=== PATIENT | female | born 1985 | race Caucasian/White ===

== ENCOUNTER 2017-09-16 12:03 | Inpatient (IN) | payer BC ==
[~2017-09-16] VITALS: Ht 175.3 cm; Wt 74.1 kg
[~2017-09-16 12:03] MED LIST: IBUP-1223 PO; OXYC-302 PO
[2017-09-22] MEDS ORDERED: LACTATED RINGERS 1,000 ML IV SCH (16:13)
[2017-09-22] MEDS ORDERED: OXYTOCIN 30U/ 0.9% NaCL 500ML 500 ML IV ONE (16:13)
[2017-09-22] MEDS ORDERED: D5%-LACTATED RINGERS 1,000 ML IV SCH (16:13)
[2017-09-22 16:30] VITALS: BP 112/66
[2017-09-22] MEDS ORDERED: FENTANYL PF 100 MCG/2ML IV PRN (16:30)
[2017-09-22] MEDS ORDERED: FENTANYL PF 100 MCG/2ML IVPush PRN (16:30)
[2017-09-22] MEDS ORDERED: ONDANSETRON 2MG/ML, 2ML IVPush PRN (16:30)
[2017-09-22 16:41] LABS: HEMATOCRIT 39.3 % (34.6-47.8); WHITE BLOOD COUNT 10.3 x10^3/uL (3.4-10)
[2017-09-22] MEDS ORDERED: PREN1TAB60 PO (17:07)
[2017-09-22] MEDS ORDERED: OXYTOCIN 30U/ 0.9% NaCL 500ML 500 ML IV PRN (18:57)
[2017-09-22] MEDS: SODIUM CHLORIDE FLUSH 3ML SYRINGE IVF SCH (21:00)
[2017-09-22] MEDS ORDERED: ACYCLOVIR 200 MG CAPSULE PO SCH (21:00)
[2017-09-22] MEDS: VALACYCLOVIR 500MG TABLET PO SCH (21:00)
[2017-09-23] MEDS ORDERED: FENTANYL/BUPIV./NS/PF 250 ML EPIDCONT SCH ×2 (01:19)
[2017-09-23] MEDS ORDERED: LACTATED RINGERS 1,000 ML IV SCH ×2 (01:19)
[2017-09-23] MEDS ORDERED: EPHEDRINE 50 MG/ML, 1ML IVPush PRN ×2 (01:30)
[2017-09-23] MEDS ORDERED: LACTATED RINGERS 1,000 ML IVBOLUS PRN ×2 (01:30)
[2017-09-23] MEDS ORDERED: NALOXONE 0.4 MG/ML, 1ML IVPush PRN ×2 (01:30)
[2017-09-23] MEDS: OXYTOCIN 30U/ 0.9% NaCL 500ML 500 ML IV SCH ×7 (03:11→11:47)
[2017-09-23] MEDS ORDERED: OXYTOCIN 30U/ 0.9% NaCL 500ML 500 ML IV SCH (03:11)
[2017-09-23] MEDS ORDERED: HYDROcodone/APAP 5/325 TABLET PO PRN ×2 (03:30)
[2017-09-23] MEDS ORDERED: IBUPROFEN 600 MG TABLET PO PRN (03:30)
[2017-09-23] MEDS ORDERED: BISACODYL 10 MG SUPP PR PRN (03:30)
[2017-09-23] MEDS ORDERED: MISOPROSTOL 200 MCG TABLET PR PRN (03:30)
[2017-09-23] MEDS ORDERED: ACETAMINOPHEN 325 MG TABLET PO PRN ×2 (03:30)
[2017-09-23] MEDS ORDERED: ONDANSETRON 2MG/ML, 2ML IV PRN (03:30)
[2017-09-23] MEDS ORDERED: CALCIUM CARBONATE 500 MG TAB.CHEW PO PRN (03:30)
[2017-09-23 05:00] VITALS: BP 111/60
[2017-09-23 07:30] VITALS: BP 122/74
[2017-09-23] MEDS: PRENATAL VIT/IRON/FA 1 EACH TABLET PO SCH (07:47)
[2017-09-23] MEDS: DOCUSATE 100 MG CAPSULE PO PRN (07:47)
[2017-09-23] MEDS: SODIUM CHLORIDE FLUSH 3ML SYRINGE IVF SCH (08:02)
[2017-09-23] MEDS: VALACYCLOVIR 500MG TABLET PO SCH ×2 (09:03→21:23)
[2017-09-23 10:19] LABS: HEMOGLOBIN 11.7 g/dL (11.7-16.4); WHITE BLOOD COUNT 13.3 x10^3/uL (3.4-10)
[2017-09-23 10:37] LABS: DIFF TOTAL CELLS COUNTED 100 CELL DIFF
[2017-09-23 10:39] LABS: VERIFY COUNTS? YES
[2017-09-23 12:00] VITALS: BP 109/65
[2017-09-23 16:00] VITALS: BP 111/68
[2017-09-23 19:15] VITALS: BP 106/66
[2017-09-24 00:05] VITALS: BP 104/58
[2017-09-24 08:15] VITALS: BP 110/65
[2017-09-24] MEDS: PRENATAL VIT/IRON/FA 1 EACH TABLET PO SCH (08:20)
[2017-09-24] MEDS: DOCUSATE 100 MG CAPSULE PO PRN (08:20)
[2017-09-24] MEDS: VALACYCLOVIR 500MG TABLET PO SCH (08:20)
[2017-09-24] MEDS ORDERED: VALA500T4 PO (14:58)
== END 2017-09-24 15:37 | disposition home or self-care (01) | DRG 774 ==
LOC: LDIP 09-22 16:04 → 2NW 09-23 04:33
PROVIDERS: ADMIT Obstetrics & Gynecology; ATTEND Obstetrics & Gynecology
PROC: 10E0XZZ Delivery of Products of Conception, External Approach (ICD-10-PCS; principal; 2017-09-23)
PROC: 10907ZC Drainage of Amniotic Fluid, Therapeutic from Products of Conception, Via Natural or Artificial Opening (ICD-10-PCS; 2017-09-23)
PROC: 0HQ9XZZ Repair Perineum Skin, External Approach (ICD-10-PCS; 2017-09-23)
PROC: 3E033VJ Introduction of Other Hormone into Peripheral Vein, Percutaneous Approach (ICD-10-PCS; 2017-09-23)
PROC: 3E0R3BZ Introduction of Anesthetic Agent into Spinal Canal, Percutaneous Approach (ICD-10-PCS; 2017-09-23)
PROC: 00HU33Z Insertion of Infusion Device into Spinal Canal, Percutaneous Approach (ICD-10-PCS; 2017-09-23)
DX: O48.0 Post-term pregnancy (principal); O98.52 Other viral diseases complicating childbirth; B00.9 Herpesviral infection, unspecified; O76 Abnormality in fetal heart rate and rhythm complicating labor and delivery; O70.0 First degree perineal laceration during delivery; Z3A.40 40 weeks gestation of pregnancy; Z37.0 Single live birth
CPT/HCPCS: 36415; 82803; 85025; 86850; 86900; J2590; J3010; J7120